=== PATIENT | female | born 2000 | race Caucasian/White ===

== ENCOUNTER 2022-06-28 15:19 | Outpatient (CLI) | payer OTHER, SELFPAY | END 2022-06-28 15:20 | disposition home or self-care (01) | LOC: NFLDREF 15:19 | PROVIDERS: PCP Family Medicine; Visit Provider Obstetrics & Gynecology | DX: N92.0 Excessive and frequent menstruation with regular cycle (principal) | CPT/HCPCS: 84443 ==

== ENCOUNTER 2024-01-27 11:26 | Outpatient (CLI) | payer OTHER, SELFPAY ==
--- NOTE | 2024-01-27 11:30 | CRLHL7_ITS ---
For Patients: As a result of the Century Cures Act, medical imaging exams and procedure reports are released immediately into your electronic medical record. You may view this report before your referring provider. If you have questions, please contact your health care provider. INDICATION: Pelvic and perineal pain. TECHNIQUE: Transabdominal and transvaginal pelvic ultrasound. Grayscale and duplex Doppler images. COMPARISON: None. FINDINGS: Uterus is anteverted and measures 7.8 x 3.4 x 4.2 cm. Endometrial stripe thickness is 1.1 cm. Normal color and spectral Doppler flow to both ovaries. Incidental dominant follicle in the right ovary. Small amount of fluid in the pelvis, nonspecific. IMPRESSION: Normal pelvic ultrasound. Dictated by Marcos Hall MD @ 01/28/2024 8:51:22 AM (Electronically Signed)
== END 2024-01-27 11:27 | disposition home or self-care (01) ==
LOC: US 11:27
PROVIDERS: PCP Family Medicine; Visit Provider Obstetrics & Gynecology
DX: R10.2 Pelvic and perineal pain (principal); N93.9 Abnormal uterine and vaginal bleeding, unspecified
CPT/HCPCS: 76830; 76856; 93976

== ENCOUNTER 2024-05-06 11:45 | Outpatient (CLI) | payer OTHER, SELFPAY ==
--- NOTE | 2024-05-06 12:15 | CRLHL7_ITS ---
For Patients: As a result of the Cures Act, medical imaging exams and procedure reports are released immediately into your electronic medical record. You may view this report before your referring provider. If you have questions, please contact your health care provider. INDICATION: First trimester scan, establish dates. COMPARISON: None. TECHNIQUE: Real-time wells-scale imaging of the pelvis was performed. FINDINGS: Sonographic imaging demonstrates a single living intrauterine gestation. The embryo demonstrates a regular cardiac rate measuring 131 beats per minute. The embryo`s crown-rump length measurement of 0.63 cm corresponds to a gestational age of 6 weeks 3 days with a sonographic due date of 12/27/2024. There is a normal-appearing yolk sac. There are no gross abnormalities noted within the embryo at this early state of development. The gestational sac has a normal appearance. Right superior subchorionic hemorrhage measures 11 x 12 x 7 millimeters. Left inferior subchorionic hemorrhage measures 14 x 9 x 9 millimeters. The amount of fluid within the sac appears appropriate for gestational age. The cervix is closed. The myometrium appears normal. The ovaries are of normal size. Corpus luteal cyst right ovary. There are no suspicious fluid collections noted in the cul-de-sac. IMPRESSION: Single living intrauterine with sonographic gestational age 6 weeks 3 days and a sonographic due date 12/27/2024. Right superior subchorionic hemorrhage measures 11 x 12 x 7 millimeters. Left inferior subchorionic hemorrhage measures 14 x 9 x 9 millimeters. Dictated by Nicholas Yadav MD @ 05/07/2024 8:18:40 PM (Electronically Signed)
== END 2024-05-06 11:46 | disposition home or self-care (01) ==
LOC: US 11:46
PROVIDERS: PCP Family Medicine; Visit Provider Physician Assistant
DX: Z34.91 Encounter for supervision of normal pregnancy, unspecified, first trimester (principal); O20.9 Hemorrhage in early pregnancy, unspecified; Z3A.01 Less than 8 weeks gestation of pregnancy
CPT/HCPCS: 76817

== ENCOUNTER 2024-05-06 13:31 | Outpatient (CLI) | payer OTHER, SELFPAY | END 2024-05-06 13:32 | disposition home or self-care (01) | PROVIDERS: PCP Family Medicine; Visit Provider Advanced Practice Midwife | DX: Z34.91 Encounter for supervision of normal pregnancy, unspecified, first trimester (principal); Z3A.08 8 weeks gestation of pregnancy | CPT/HCPCS: 83021; 86592; 86703; 86704; 86706; 86762; 86787; 86803; 86850; 86900; 86901; 87086; 87340 ==

== ENCOUNTER 2024-05-28 14:40 | Emergency (ER) | payer OTHER, SELFPAY ==
[2024-05-28 14:48] VITALS: BP 145/86; PULSE 93; RESP 18; TEMP 36.8; O2SAT 100; BMI 25.8
--- NOTE | 2024-05-28 15:00 | CRLHL7_ITS ---
For Patients: As a result of the Century Cures Act, medical imaging exams and procedure reports are released immediately into your electronic medical record. You may view this report before your referring provider. If you have questions, please contact your health care provider. INDICATION: Possible miscarriage, [facility] and no heart tones were visualized. TECHNIQUE: Ultrasound OB pelvis transvaginal. Real-time wells-scale imaging of the pelvis was performed. COMPARISON: 05/06/2024. FINDINGS: There is a single intrauterine gestation. The gestational sac demonstrates abnormal contours. No cardiac activity identified. The embryo`s crown rump length measurement of 2.3 cm corresponds to a gestational age of 9 weeks. There is a normal appearing yolk sac. Partially visualized small subchorionic hemorrhage. There is questionable uterine synechiae, best appreciated on the cine clip. The ovaries are of normal size. There are no suspicious fluid collections noted in the cul-de-sac. IMPRESSION: Single intrauterine with abnormal contours of the gestational sac and no cardiac activity identified, concerning for early loss. Dictated by Alexis Alcala MD @ 05/28/2024 4:35:25 PM (Electronically Signed)
--- NOTE | 2024-05-28 15:10 | ED.GENADULT ---
HPI - General Adult General Date Seen: 05/28/24 Chief complaint: OB/Uterine Contractions Stated complaint: had ultrasound today, no heartbeat detected Time Seen by Provider: 05/28/24 14:53 Source: patient History of Present Illness HPI narrative: Patient is a 23-year-old , seen by a special agent [employer] in our system on May 06 with an ultrasound at that time. Her LMP had been recorded at 9:25 a.m. 2020 for, but she says she was measuring closer to 6 weeks at that time and so days were adjusted. Today she had gone up to the [facility] to act as a model for people training on ultrasound. They did not see heart beat and told her she should go to the ER. She has not had any symptoms such as abdominal pain, cramping, bleeding. She says that they measured her at a little over 8 weeks. We are not able to get that ultrasound report as apparently they are no longer open. Related Data Home Medications ?Medication ?Instructions ?Recorded ?Confirmed [id number] 3-fat com #1 27 cap PO 05/06/24 05/06/24 mg-1 mg-300 mg capsule Previous Rx's ?Medication ?Instructions ?Recorded citalopram 20 mg tablet See Rx Instructions .Route 07/24/23 .COMPLEX #90 tabs Allergies Allergy/AdvReac Type Severity Reaction Status Date / Time Penicillins Allergy Intermediate Rash Verified 05/06/24 13:24 [facility] Medical History (Updated 05/28/24 @ 15:53 by Ro Camacho MD) Heavy periods ?N92.0 - Excessive and frequent menstruation with regular cycle (ICD-10) Pelvic pain ?R10.2 - Pelvic and perineal pain (ICD-10) Abnormal uterine bleeding ?N93.9 - Abnormal uterine and vaginal bleeding, unspecified (ICD-10) Acute pelvic inflammatory disease ?N73.0 - Acute parametritis and pelvic cellulitis (ICD-10) Surgical History (Updated 05/06/24 @ 13:55 by Ashley Farias CNM) [place] teeth extracted ?K08.409 - Partial loss of teeth, unspecified cause, unspecified class (ICD-10) Family History Other Diabetes Social History (Updated 05/06/24 @ 16:58 by Ashley Farias CNM) Narrative: SOCIAL? ? Education: Bachelor's? ? 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 ? Partner: Scott? 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 ? Pets: Johnny? ? Abuse: Denies past ? Unable to assess current, partner present? ? Special Diet: Denies? ? Ok with a blood transfusion: yes? ? Culture or gnosticism beliefs: denies? RISK FACTORS? ? Exercise Times/wk: Barn chores she has horses, frequent shoveling, carrying things, raking Depression/Anxiety: anxiety? ? Previous Treatments was on citalopram 10mg daily, stopped when she got recommend she restart ? Therapy denies ISAIAS: 5 PHQ 9: 3? ? Seat Belt Use: Routinely ? Smoking: Denies past/present? ? Alcohol/day: Denies while ? ?one time a month when not Caffeine: one pop and coffee daily has cut down? ? Drug Use: Denies past/present? ? What is your current living situation?: I presently have a place to live Problems where you live: no known problems In the past 12 months, utilities in danger of being shut off: no In the past 12 mos, have been you worried that your food would run out before you had money to buy more?: never true In the past 12 mos, the food you bought just didn't last and you didn't have money to buy more?: never true Smoking Status: Never smoker Do you use any of these nicotine containing products: None and E-Cigarettes How often do you have a drink containing alcohol: never AUDIT-C Alcohol total score: 0 Non-prescribed substance use: denies use How often does anyone, including family, friends and others, physically hurt you: never How often does anyone, including family, friends and others, insult or talk down to you: never How often does anyone, including family, friends and others, threaten you with harm: never How often does anyone, including family, friends and others, scream or curse at you: never service: No Exam Narrative: Exam Narrative: Vital signs reviewed In general, alert, nontoxic Head: Normocephalic, atraumatic. Eyes: Sclera clear. Pupils equal and reactive. ENT: Mucous membranes moist. Neck: Supple without adenopathy. Heart: Regular rate and rhythm without murmur. Lungs: Clear. No increased work of breathing, crackles or wheezes. Abdomen: Soft, nontender to palpation. Extremities: Well perfused, pulses intact. No significant edema. Neurologic: Alert, conversant. Speech fluent, face symmetric. Moves all extremities equally. Skin: Warm, dry well perfused. Affect: Normal. Const: Vital Signs, click to edit/add: Vital Signs - 24 hr 05/28/24 14:48 Temperature 98.2 F Pulse Rate [Pulse Oximeter] 93 Respiratory Rate 18 Blood Pressure [Ri ght Upper Arm] 145/86 H Pulse Oximetry 100 Oxygen Delivery Me thod Room Air Course Course ED Course: Care discussed with Dr. Flores, on-call for obstetrics. Will go ahead and repeat the ultrasound as she is understandably concerned about those results and we do not have the ability to get that report nor see images. She had prior blood work to determine blood type, and I do not think other laboratory evaluation is needed today. Ultrasound findings reviewed, linked below and discussed with patient and her . Unfortunately, she does not seem to have a viable . Per Dr. Flores, patient which should be seen in clinic on Friday for review of options for her miscarriage. Discussed reasons to return such as severe abdominal pain or cramping, heavy bleeding, fevers or other new symptoms. Vital Signs Vital signs: Initial Vital Signs Temperature 98.2 F 05/28/24 14:48 Temperature Source Temporal Artery Scan 05/28/24 14:48 Pulse Rate 93 05/28/24 14:48 Respiratory Rate 18 05/28/24 14:48 Blood Pressure 145/86 H 05/28/24 14:48 Blood Pressure Mean 105 05/28/24 14:48 Pulse Oximetry 100 05/28/24 14:48 Oxygen Delivery Method Room Air 05/28/24 14:48 Vital Signs Temperature 98.2 F 05/28/24 14:48 Pulse Rate 93 05/28/24 14:48 Respiratory Rate 18 05/28/24 14:48 Blood Pressure 145/86 H 05/28/24 14:48 Pulse Oximetry 100 05/28/24 14:48 Oxygen Delivery Method Room Air 05/28/24 14:48 Temperature 98.2 F 05/28/24 14:48 Pulse Rate 93 05/28/24 14:48 Respiratory Rate 18 05/28/24 14:48 Blood Pressure 145/86 H 05/28/24 14:48 Pulse Oximetry 100 05/28/24 14:48 Oxygen Delivery Method Room Air 05/28/24 14:48 Medical Decision Making Imaging Data Pelvic ultrasound: Attestation: I have reviewed the pertinent imaging results. Radiologist's impression: Patient: Idalia Salinas MR#: [id number] : 2000 Acct:[id number] Loc: ED Service Date: 05/28/[address]: Ordering Physician: Ro Camacho M.D. Date of Service: 05/28/24 Procedure(s): US pelvic transvaginal Accession Number(s): [id number] cc: Ro Camacho M.D.; Harry Rosen M.D.~ For Patients: As a result of the Cures Act, medical imaging exams and procedure reports are released immediately into your electronic medical record. You may view this report before your referring provider. If you have questions, please contact your health care provider. INDICATION: Possible miscarriage, [facility] and no heart tones were visualized. TECHNIQUE: Ultrasound OB pelvis transvaginal. Real-time wells-scale imaging of the pelvis was performed. COMPARISON: 05/06/2024. FINDINGS: There is a single intrauterine gestation. The gestational sac demonstrates abnormal contours. No cardiac activity identified. The embryo`s crown rump length measurement of 2.3 cm corresponds to a gestational age of 9 weeks. There is a normal appearing yolk sac. Partially visualized small subchorionic hemorrhage. There is questionable uterine synechiae, best appreciated on the cine clip. The ovaries are of normal size. There are no suspicious fluid collections noted in the cul-de-sac. IMPRESSION: Single intrauterine with abnormal contours of the gestational sac and no cardiac activity identified, concerning for early loss. Dictated by Alexis Alcala MD @ 05/28/2024 4:35:25 PM Discharge Plan Discharge Clinical Impression: Missed Patient Disposition: Home, Self-Care Condition: Stable Instructions: Miscarriage (ED) Additional Instructions: You should be seen in clinic next week to discuss options for management. Please call [phone] to schedule. If in the meantime you have significant bleeding or cramping, you can return to the ER at any time. Prescriptions: No Action citalopram 20 mg tablet See Rx Instructions .ROUTE .COMPLEX Qty: 90 3RF Dose Instruction: TAKE 1 TABLET BY MOUTH EVERY DAY Rx Instructions: TAKE 1 TABLET BY MOUTH EVERY DAY BHN-fqvb-JF-omega 3-fat com #1 27-1-300 mg capsule PO Follow Up/Referrals: Harry Rosen MD [Primary Care Provider] - Stand Alone Forms: [employer] Info Instructions
== END 2024-05-28 16:09 | disposition home or self-care (01) ==
PROVIDERS: Emergency Provider Emergency Medicine; PCP Family Medicine
DX: O02.1 Missed abortion (principal)
CPT/HCPCS: 76817; 76830; 99283; 99284

== ENCOUNTER 2024-06-01 10:32 | Day surgery (SDC) | payer OTHER, SELFPAY ==
[2024-06-01 10:53] VITALS: BMI 26.8
[2024-06-01 10:56] VITALS: BP 111/73; PULSE 82; RESP 20; TEMP 37.1; O2SAT 98
[2024-06-01] MEDS: DOXYCYCLINE HYCLATE 100 MG 200 MG PO (11:20)
[2024-06-01] MEDS: SODIUM CHLORIDE 0.9 % (FLUSH) 10 ML SYRINGE IVF (11:23)
[2024-06-01] MEDS: ONDANSETRON 2 MG/ML inj 4 MG IVP (12:20)
[2024-06-01] MEDS: 0.9 % SODIUM CHLORIDE 500 ML 500 ML 50 ML IV (12:23)
--- NOTE | 2024-06-01 12:30 | W.PM.H&PU ---
History & Physical Update History & Physical Update H&P Reviewed and patient assessed: No changes noted H&P Updates: Ms. Salinas is seen in pre-op prior to planned suction D&C. No interval change to her health history or questions today. We again reviewed the risks, benefits and alternatives to the planned procedure. Written consent was re-signed. Post-procedure restrictions and expectations reviewed. Pre-op labs reviewed and are within normal limits. Doxycycline as perioperative antibiotic. A+, no rhogam.
--- NOTE | 2024-06-01 12:56 | W.PM.GYNPROC ---
Procedure Note Time Seen by Provider: 12:57 Date of procedure: 06/01/24 Will [facility] bill your pro fee for this procedure?: Yes Pre-op diagnosis: Missed Procedure: Suction dilation and curettage Anesthesia: MAC and local Complications: None Surgeon: Young Jensen MD Estimated blood loss (mL): 100 Urine Output (mL): 0 Pathology: specimen obtained, sent to pathology Condition: stable Disposition: same day Findings: Anteverted uterus, palpates 9 weeks in size Preprocedure transabdominal ultrasound confirms missed A/B Postprocedure transabdominal ultrasound confirms thin and homogeneous endometrial stripe Procedure Description: After verifying written informed consent, the patient was taken to the operating room. A time-out was completed to verify correct patient and procedure. Anesthesia was induced and found to be adequate. She was placed in the dorsal lithotomy position in yellow fin stirrups with care taken to avoid neurologic injury. She did receive a preoperative dose of doxycycline per protocol. She was prepared and draped in the usual sterile fashion. A surgical pause was conducted to confirm correct patient and procedure. Bimanual exam was performed as above. Speculum was inserted. The cervix was identified and grasped with a single-tooth tenaculum. A paracervical block was applied with 0.5% bupivicaine was performed, 20cc total. The cervix was serially dilated to accommodate a No. 8 curved curette. The curette was then introduced under transabdominal ultrasound guidance. The intrauterine contents were aspirated until there was no further return of tissue. Following this, the suction curettage was utilized to gently confirm satisfactory uterine cri in all quadrants. Transabdominal ultrasound was performed documenting a thin, uniform endometrial stripe. Tenaculum was removed from the cervix. Cervix was made hemostatic with silver nitrate. Sponge and instrument count was correct. The patient was transferred to the recovery room in excellent condition. Products of conception were submitted to pathology. Surgical debrief completed.
--- NOTE | 2024-06-01 12:57 | W.ANESCHARGE ---
Anesthesia Charges Start Date/Time Anesthesia Start Date: 06/01/24 Anesthesia Start Time: 12:58 Stop Date/Time Anesthesia Stop Date: 06/01/24 Anesthesia Stop Time: 13:31
[2024-06-01] MEDS: DOXYCYCLINE HYCLATE 200 MG in 0.9 % SODIUM CHLORIDE 250 ml 250 ML 250 MG IVPB (13:05)
[2024-06-01] MEDS: SILVER NITRATE APPLICATOR 1 EACH STICK..EA. TOPICAL (13:17)
[2024-06-01] MEDS: BUPIVACAINE 0.5% 30 ML INJECTION (13:17)
[2024-06-01 13:30] VITALS: BP 111/63; PULSE 76; RESP 20; TEMP 36.2; O2SAT 94
--- NOTE | 2024-06-01 13:31 | W.ANESCHARGE ---
Anesthesia Charges Start Date/Time Anesthesia Start Date: 06/01/24 Anesthesia Start Time: 12:58 Stop Date/Time Anesthesia Stop Date: 06/01/24 Anesthesia Stop Time: 13:31
[2024-06-01 13:45] VITALS: BP 108/74; PULSE 82; RESP 16; O2SAT 94
[2024-06-01 14:00] VITALS: BP 110/66; PULSE 78; RESP 16; TEMP 36.3; O2SAT 96
--- NOTE | 2024-06-01 14:06 | SUR.PHASEII ---
IV Doxycycline hanging from OR when PT entered SDS. Infused completely
== END 2024-06-01 14:18 | disposition home or self-care (01) ==
LOC: OR 10:33
PROVIDERS: PCP Family Medicine; Visit Provider Obstetrics & Gynecology
PROC: (CPT 59820; principal; 2024-06-01 11:45)
DX: O02.1 Missed abortion (principal)
CPT/HCPCS: 59820; 00940; 01965; 36415; 85018; 86850; 86900; 86901; 88305; A9270; J0665; J1100; J1630; J1885; J2250; J2405; J2704; J3010; J7030; J7050

== ENCOUNTER 2024-07-12 12:28 | Outpatient (CLI) | payer BC, SELFPAY | END 2024-07-12 12:29 | disposition home or self-care (01) | LOC: NFLDREF 12:29 | PROVIDERS: PCP Family Medicine; Visit Provider Obstetrics & Gynecology | DX: O02.1 Missed abortion (principal) | CPT/HCPCS: 84702 ==

== ENCOUNTER 2024-07-14 08:07 | Outpatient (CLI) | payer BC, SELFPAY | END 2024-07-14 08:08 | disposition home or self-care (01) | LOC: NFLDREF 07-19 02:33 | PROVIDERS: PCP Family Medicine; Referring Provider Family Medicine; Visit Provider Obstetrics & Gynecology | DX: O09.291 Supervision of pregnancy with other poor reproductive or obstetric history, first trimester (principal) | CPT/HCPCS: 84702 ==

== ENCOUNTER 2024-07-22 14:06 | Outpatient (CLI) | payer BC, SELFPAY | END 2024-07-22 14:07 | disposition home or self-care (01) | LOC: NFLDREF 07-28 01:13 | PROVIDERS: PCP Family Medicine; Referring Provider Family Medicine; Visit Provider Obstetrics & Gynecology | DX: O03.9 Complete or unspecified spontaneous abortion without complication (principal) | CPT/HCPCS: 84702 ==

== ENCOUNTER 2024-07-29 08:12 | Outpatient (CLI) | payer BC, SELFPAY | END 2024-07-29 08:13 | disposition home or self-care (01) | LOC: NFLDREF 07-31 02:39 | PROVIDERS: PCP Family Medicine; Referring Provider Family Medicine; Visit Provider Obstetrics & Gynecology | DX: O03.9 Complete or unspecified spontaneous abortion without complication (principal) | CPT/HCPCS: 84702 ==